=== PATIENT | male | born 2000 | race African-American/Black ===

== ENCOUNTER 2020-09-04 17:49 | Emergency (ER) | payer SELFPAY ==
[~2020-09-04] VITALS: Ht 175.3 cm; Wt 73.0 kg
[2020-09-04] MEDS ORDERED: FENTANYL CITRATE/PF 50MCG/ML 2ML VIAL IV PRN (18:30)
[2020-09-04] MEDS ORDERED: FENTANYL CITRATE/PF 50MCG/ML 2ML VIAL IV ONE (18:30)
[2020-09-04] MEDS ORDERED: SODIUM CHLORIDE 0.9% 1,000 ML IV ONE (18:30)
[2020-09-04 18:31] LABS: BASOPHILS % 0.3 % (0.0-2.0); EOSINOPHILS % 0.2 % (0.0-5.0); HEMATOCRIT. 43.7 % (42.0-52.0); HEMOGLOBIN. 14.3 g/dL (14.0-18.0); LYMPHOCYTES % 8.1 % (20.0-50.0); MEAN CORPUSCULAR HEMOGLOBIN 28.1 pg (28.0-32.0); MEAN CORPUSCULAR VOLUME 85.8 fL (80.0-94.0); MEAN PLATELET VOLUME 10.2 fl (7.4-10.4); MONOCYTES % 4.4 % (2.0-8.0); PLATELET 165 x1000/uL (130-400); RED BLOOD CELL COUNT 5.09 mill/uL (4.7-6.1); RED CELL DISTRIBUTION WIDTH 14.5 % (11.6-14.6)
[2020-09-04 18:35] LABS: CHLORIDE 108 mEq/L (98-107)
[2020-09-04 18:39] LABS: PROTHROMBIN TIME 10.8 sec (9.6-11.0)
[2020-09-04 18:40] LABS: ETHANOL BLOOD < 10 mg/dL
[2020-09-04] MEDS ORDERED: LIDOCAINE HCL 1% 20ML VIAL (Pyxis) INJ INFIL ONE (19:15)
[2020-09-04 21:10] VITALS: BP 135/79
== END 2020-09-04 21:10 | disposition home or self-care (01) ==
LOC: ER 17:49
DX: S01.412A Laceration without foreign body of left cheek and temporomandibular area, initial encounter (principal); S02.2XXA Fracture of nasal bones, initial encounter for closed fracture; F91.8 Other conduct disorders; R03.0 Elevated blood-pressure reading, without diagnosis of hypertension; D72.829 Elevated white blood cell count, unspecified; W17.81XA Fall down embankment (hill), initial encounter; Y93.89 Activity, other specified; Y92.838 Other recreation area as the place of occurrence of the external cause
CPT/HCPCS: 12016; 36415; 70450; 70486; 80053; 80320; 85025; 85610; 93005; 96374; 96376; 99285; J3010; J3490; J7030; Z7610; G0480